=== PATIENT | female | born 1980 | race Caucasian/White ===

== ENCOUNTER 2017-04-14 15:24 | Emergency (ER) | payer BC ==
[~2017-04-14] VITALS: Ht 165.1 cm; Wt 99.7 kg
[~2017-04-14 15:24] MED LIST: FLXHP PO; GLYC2TAB16 PO; KLN1X PO; LEVOIUD INT UTER; MULT-603 PO; NALT50TA16 PO; PANT40TA2 PO; PROB1TAB16 PEG; RBN1 PO; SUMA25TA12 PO; TRAZ50TA35 PO; ZLF/100 PO
[2017-04-14 15:36] VITALS: TEMP 37; Ht 165.1 cm; Wt 99.7 kg
[2017-04-14] MEDS ORDERED: CARI250T PO (15:48)
[2017-04-14] MEDS ORDERED: DOXE50CA3 PO (15:48)
[2017-04-14] MEDS ORDERED: LEVOIUD INT UTER (15:49)
[2017-04-14] MEDS ORDERED: MoRPHine SULFATE 4 MG/ML 1 ML CARP\\VIAL IV STA ×2 (15:52→18:18)
[2017-04-14] MEDS ORDERED: SODIUM CHLORIDE 0.9% 1000ML 1,000 ML IV STA (15:52)
[2017-04-14 16:16] LABS: BASO % 0.2 %; BASO ABS # 0.02 K/uL (0-0.2); COMPLETE YES; EOS % 3.8 %; HEMATOCRIT 40.5 % (37-47); IG% 0.2 %; LYMPH % 25.2 %; LYMPH ABS # 2.13 K/uL (1.2-3.4); MEAN CELL VOLUME 87.7 fL (80-100); MEAN CORPUSCULAR HEMOGLOBIN 26.8 pg (25-34); MEAN CORPUSCULAR HGB CONC 30.6 g/dl (32-36); MEAN PLATELET VOLUME 10.5 fL (7.4-10.4); MONO % 3.3 %; NEUT % 67.3 %; PLATELET COUNT 270 K/uL (130-400); RED BLOOD COUNT 4.62 M/uL (4.2-5.4); WHITE BLOOD COUNT 8.45 K/uL (4.8-10.8)
[2017-04-14 16:23] LABS: URINE APPEARANCE CLEAR (CLEAR); URINE BILIRUBIN NEG (NEG); URINE COLOR YELLOW; URINE EPITHELIAL CELL AUTO >30 /lpf (0-5); URINE NITRITE NEG (NEG); URINE PH 5.5 (4.5-7.5); URINE SPECIFIC GRAVITY 1.012 (1.000-1.030); UROBILINOGEN NEG (NEG)
[2017-04-14 16:25] LABS: MANUAL MICROSCOPIC REQUIRED? NO; REVIEW REQ? NO
--- NOTE | 2017-04-14 16:33 | EMERGENCY ROOM VISIT NOTE ---
History First contact with patient: 15:41 Chief Complaint: ABDOMINAL PAIN Stated Complaint: R SIDE PELVIC,GROIN,STOMACH PAIN History of Present Illness The patient is a 36 year old female who presents to the Emergency Room with complaints of right lower quadrant abdominal pain for the past 3 weeks. Patient states the pain is constant, has been getting progressively worse especially over the past 2-3 days, relieved with some positioning and holding pressure, worsened with movement and walking, 7/10. She reports history of IBS and chronic constipation, however notes for the past few weeks she has had looser stools. She has tried [id number] Tylenol, NSAIDs, as well as prescribed Soma and gabapentin for the pain, with little relief, however she has not taken any medications for pain today. She denies chest pain, shortness of breath, dizziness or syncope, back pain, nausea, vomiting, diarrhea, constipation, fever/chills, dysuria. She does note that she was recently weaned off of her Prozac a week ago due to a sleep study, no other changes in medications. Review of Systems GENERAL: Denies fevers, chills, malaise, fatigue, unintentional weight changes. HEENT: Denies dizziness, visual problems, hearing loss, tinnitus. Denies difficulty swallowing or oral lesions. PULMONARY: Denies cough, shortness of breath, sputum production or hemoptysis. CARDIOVASCULAR: Denies chest pain, palpitations, dyspnea on exertion, orthopnea or peripheral edema. GASTROINTESTINAL: + Abdominal pain. Denies diarrhea, constipation, nausea, vomiting, or hematochezia. GENITOURINARY: Denies dysuria, frequency, urgency or nocturia. NEUROLOGIC: Denies history of epilepsy, CVA, TIA or chronic headaches. MUSCULOSKELETAL: Denies history of joint tenderness/swelling. SKIN: Denies rashes or lesions. PSYCHIATRIC: + History of depression. ENDOCRINE: Denies history of diabetes, thyroid disorders. Past Medical/Surgical History Medical Problems: (1) Anxiety (2) Asthma (3) Depression (4) Enteritis (5) Enteritis (6) History of pneumonia (7) HLD (hyperlipidemia) (8) Migraine Surgical Problems: (1) H/O esophagogastroduodenoscopy (2) H/O: (3) History of bilateral breast reduction surgery (4) History of delivery (5) History of cholecystectomy (6) History of tonsillectomy and adenoidectomy (7) Hx of breast reduction, elective (8) S/P surgery on nasal septum (9) thoracoscopy Family History Cancer Diabetes mellitus Heart disease Hypertension Lung disease Stroke Social History Smoking Status: Never Smoker Alcohol Use: none Drug Use: none Marital Status: in relationship Housing Status: lives with family Occupation Status: employed Current/Historical Medications Scheduled Carisoprodol (Soma), 2 TAB PO BID Doxepin (Sinequan), 2 CAP PO HS Glycopyrrolate (Glycopyrrolate), 2 TABS PO QAM Levonorgestrel (Iud) (Mirena), INT UTER UD Allergies Coded Allergies: Sulfa Antibiotics (Verified Allergy, Unknown, "SULFA DRUGS ALLERGY", ) Physical Exam Vital Signs Date Time Temp Pulse Resp B/P (MAP) Pulse Ox O2 Delivery O2 Flow Rate FiO2 04/14/17 20:13 62 18 117/75 98 Room Air 04/14/17 18:56 73 18 114/69 99 Room Air 04/14/17 17:30 68 16 116/77 100 04/14/17 16:32 74 04/14/17 15:36 37.0 89 18 134/78 97 Room Air Physical Exam CONSTITUTIONAL: No acute distress. Well appearing and well nourished. Alert and oriented X 4 with normal affect. HEENT: Normocephalic, atraumatic. Pupils equal, round and reactive to light, EOMI. TMs normal. Pharynx normal. Moist mucous membranes. NECK: Supple, full active range of motion without discomfort. RESPIRATORY: Clear to auscultation bilaterally with no wheezing, crackles, rhonchi or stridor. Equal expansion bilaterally. CARDIOVASCULAR: Regular rate and rhythm with no murmurs, rubs or gallops. Normal peripheral perfusion. No edema. GASTROINTESTINAL: Soft, nondistended. Obese abdomen. Normal bowel sounds present in all quadrants. Moderate tenderness in the right lower quadrant, positive rebound, negative Rovsing, negative psoas sign. No palpable hernia. MUSCULOSKELETAL: Full range of motion of all joints without discomfort. INTEGUMENTARY: No rash or other significant dermatologic conditions noted. NEUROLOGIC: Cranial nerves II-XII grossly intact. No focal neurologic deficits noted. Medical Decision & Procedures ER Provider Diagnostic Interpretation: ABDOMEN AND PELVIS CT WITH IV AND ORAL CONTRAST CT DOSE: 1068.04 mGy.cm HISTORY: Generalized abdominal pain. TECHNIQUE: Multiaxial CT images of the abdomen and pelvis were performed following the use of intravenous and oral contrast. COMPARISON STUDY: Abdomen and pelvis CT 03/24/2016. FINDINGS: The lung bases are clear. Mild hepatic steatosis. Normal appendix. The intrauterine device is in good position. Normal bladder. Trace pelvic free fluid. This is likely physiologic. The spleen, gallbladder, pancreas, kidneys, and adrenal glands are within normal limits. No bowel wall thickening or obstruction. The pelvic organs are unremarkable. No suspicious lytic or blastic osseous lesions. IMPRESSION: 1. No bowel wall thickening or obstruction. 2. Mild hepatic steatosis. 3. Trace pelvic free fluid, likely physiologic. Laboratory Results 04/14/17 16:10 Red Blood Count 4.62, Mean Corpuscular Volume 87.7, Mean Corpuscular Hemoglobin 26.8, Mean Corpuscular Hemoglobin Concent 30.6, Mean Platelet Volume 10.5, Neutrophils (%) (Auto) 67.3, Lymphocytes (%) (Auto) 25.2, Monocytes (%) (Auto) 3.3, Eosinophils (%) (Auto) 3.8, Basophils (%) (Auto) 0.2, Neutrophils # (Auto) 5.68, Lymphocytes # (Auto) 2.13, Monocytes # (Auto) 0.28, Eosinophils # (Auto) 0.32, Basophils # (Auto) 0.02 04/14/17 16:10 Test 04/14/17 16:00 04/14/17 16:10 Urine Color YELLOW Urine Appearance CLEAR (CLEAR) Urine pH 5.5 (4.5-7.5) Urine Specific [place] 1.012 (1.000-1.030) Urine Protein NEG (NEG) Urine Glucose (UA) NEG (NEG) Urine Ketones NEG (NEG) Urine Occult Blood NEG (NEG) Urine Nitrite NEG (NEG) Urine Bilirubin NEG (NEG) Urine Urobilinogen NEG (NEG) Urine Leukocyte Esterase TRACE (NEG) Urine WBC (Auto) 1-5 /hpf (0-5) Urine RBC (Auto) 0-4 /hpf (0-4) Urine Hyaline Casts (Auto) 1-5 /lpf (0-5) Urine Epithelial Cells (Auto) >30 /lpf (0-5) Urine Bacteria (Auto) 1+ (NEG) Urine Test NEG (NEG) White Blood Count 8.45 K/uL (4.8-10.8) Red Blood Count 4.62 M/uL (4.2-5.4) Hemoglobin 12.4 g/dL (12.0-16.0) Hematocrit 40.5 % (37-47) Mean Corpuscular Volume 87.7 fL (80-100) Mean Corpuscular Hemoglobin 26.8 pg (25-34) Mean Corpuscular Hemoglobin Concent 30.6 g/dl (32-36) Platelet Count 270 K/uL (130-400) Mean Platelet Volume 10.5 fL (7.4-10.4) Neutrophils (%) (Auto) 67.3 % Lymphocytes (%) (Auto) 25.2 % Monocytes (%) (Auto) 3.3 % Eosinophils (%) (Auto) 3.8 % Basophils (%) (Auto) 0.2 % Neutrophils # (Auto) 5.68 K/uL (1.4-6.5) Lymphocytes # (Auto) 2.13 K/uL (1.2-3.4) Monocytes # (Auto) 0.28 K/uL (0.11-0.59) Eosinophils # (Auto) 0.32 K/uL (0-0.5) Basophils # (Auto) 0.02 K/uL (0-0.2) RDW Standard Deviation 45.3 fL (36.4-46.3) RDW Coefficient of Variation 14.1 % (11.5-14.5) Immature Granulocyte % (Auto) 0.2 % Immature Granulocyte # (Auto) 0.02 K/uL (0.00-0.02) Erythrocyte Sedimentation Rate 20 mm/hr (0-21) Anion Gap 9.0 mmol/L (3-11) Est Creatinine Clear Calc Drug Dose 122.4 ml/min Estimated GFR () 119.7 Estimated GFR (Non- 103.3 BUN/Creatinine Ratio 16.0 (10-20) Calcium Level 8.3 mg/dl (8.5-10.1) Total Bilirubin 0.4 mg/dl (0.2-1) Direct Bilirubin < 0.1 mg/dl (0-0.2) Aspartate Amino Transf (AST/SGOT) 25 U/L (15-37) Alanine Aminotransferase (ALT/SGPT) 20 U/L (12-78) Alkaline Phosphatase 101 U/L (45-117) C-Reactive Protein 1.05 mg/dl (0-0.29) Total Protein 6.7 gm/dl (6.4-8.2) Albumin 4.0 gm/dl (3.4-5.0) Lipase 159 U/L (73-393) Medications Administered Medications (Trade) Dose Ordered Sig/Adrienne Route Start Time Stop Time Status Last Admin Dose Admin Sodium Chloride 1,000 ml @ 999 mls/hr Q1H1M STAT IV 04/14/17 15:52 04/14/17 16:52 DC 04/14/17 15:52 999 MLS/HR Morphine Sulfate (MoRPHine SULFATE INJ) 4 mg NOW STAT IV 04/14/17 15:52 04/14/17 15:58 DC 04/14/17 16:17 4 MG Morphine Sulfate (MoRPHine SULFATE INJ) 4 mg NOW STAT IV 04/14/17 18:18 04/14/17 18:20 DC 04/14/17 18:18 4 MG Ketorolac Tromethamine (Toradol Inj) 30 mg STK-MED ONCE .ROUTE 04/14/17 20:11 04/14/17 20:12 DC 04/14/17 20:18 15 MG Medical Decision CC: Patient presenting with complaint of right lower quadrant pain Interpretation of Labs: No leukocytosis, no anemia, no significant electrolyte abnormalities, normal renal function, normal renal function, no UTI. Differential Diagnosis: Includes, but not limited to appendicitis, intra- abdominal abscess, diverticulitis, bowel obstruction, mesenteric adenitis, IBS flare, IBD, musculoskeletal strain, UTI. Medication Reconciliation: I attest that I have personally reviewed the patient' s current medication list. Vital signs review: I reviewed the patient's vital signs and interpret them as follows: T: Afebrile; BP: Normotensive; HR: Within normal limits; RR: Within normal limits; Pulse Ox: Within normal limits on room air. Blood pressure screening: The patient was found to have normal blood pressure on screening and does not require follow-up for repeat blood pressure check. Summary: Patient was evaluated at bedside, history of physical exam performed. She is alert and oriented, in no acute distress. Appears well-hydrated. She does have pointed tenderness in the right lower quadrant with positive rebound. No guarding or peritoneal signs. Orders were placed at bedside for labs, UA, IV fluids and pain medications, CT abdomen/pelvis to evaluate for appendicitis, intra-abdominal infection, inflammatory bowel disease. Patient discussed with Dr. Reece, who agrees with my assessment and plan. Labs reviewed, unremarkable as described above. CT results reviewed, no acute abnormalities, specifically no appendicitis, bowel inflammation, or obstruction. Given the increased right lower quadrant pain with walking and active hip flexion/extension, a query musculoskeletal strain/sprain as cause of patient's pain. No hip joint pain with palpation or passive range of motion. Patient reassessed multiple times throughout ED stay, is adequately addressed. I discussed all results with the patient, particularly that we did not find a diagnosis for her pain today, but have ruled out concerning etiology. I instructed her to follow-up closely with her PCP, as well as provided her with discharge instructions and return precautions should her symptoms worsen. Patient verbalized understanding and was discharged home in stable condition. Impression Primary Impression: Right lower quadrant pain Departure Information Dispostion Home / Self-Care Condition GOOD Referrals Brenna Plummer D.O. (PCP) Patient Instructions ED Abdominal Pain Unkn Cause, My [facility] Additional Instructions You have been treated in the Emergency Department your Abdominal Pain. Laboratory results and imaging studies have ruled out any emergent causes for your abdominal pain which would warrant admission or surgery. For pain control, you can use the following [id number] medicines (if >12 yo): - Regular strength (325mg/tab) Tylenol (acetaminophen) 2 tabs every 4-6 hours as needed. Do not exceed 12 tablets in a 24 hour period. Avoid taking more than 4 grams (4000 mg) of Tylenol per day. This includes any other sources of acetaminophen you may take on a regular basis. - Aleve 220mg 1-2 tablets every 12 hours as needed for pain. Do note exceed 4 tablets in a 24 hour period. Apply moist heat to the area for 20 minutes at a time several times throughout the day to help with pain. Drink plenty of water and stay well hydrated. As with any trip to the Emergency Department, you should follow-up with your Primary Care Provider from today's visit. Return to the emergency department if your symptoms persist despite treatment plan outlined above or if the following symptoms occur: increased fevers, chills , worsening nausea/vomiting, blood in your stool or urine.
[2017-04-14 16:35] LABS: ALT/SGPT 20 U/L (12-78); AST/SGOT 25 U/L (15-37); BLOOD UREA NITROGEN 12 mg/dl (7-18); CALCIUM 8.3 mg/dl (8.5-10.1); CARBON DIOXIDE 28 mmol/L (21-32); CHLORIDE 106 mmol/L (98-107); CREATININE 0.75 mg/dl (0.60-1.20); GLUCOSE 87 mg/dl (70-99); POTASSIUM 3.7 mmol/L (3.5-5.1); SODIUM 143 mmol/L (136-145)
[2017-04-14 16:37] LABS: ALKALINE PHOSPHATASE 101 U/L (45-117)
[2017-04-14] MEDS ORDERED: OPTIRAY 320 IV PRN (18:45)
--- NOTE | 2017-04-14 18:52 | DIAGNOSTIC IMAGING REPORT ---
ABDOMEN AND PELVIS CT WITH IV AND ORAL CONTRAST CT DOSE: 1068.04 mGy.cm HISTORY: Generalized abdominal pain. TECHNIQUE: Multiaxial CT images of the abdomen and pelvis were performed following the use of intravenous and oral contrast. COMPARISON STUDY: Abdomen and pelvis CT 03/24/2016. FINDINGS: The lung bases are clear. Mild hepatic steatosis. Normal appendix. The intrauterine device is in good position. Normal bladder. Trace pelvic free fluid. This is likely physiologic. The spleen, gallbladder, pancreas, kidneys, and adrenal glands are within normal limits. No bowel wall thickening or obstruction. The pelvic organs are unremarkable. No suspicious lytic or blastic osseous lesions. IMPRESSION: 1. No bowel wall thickening or obstruction. 2. Mild hepatic steatosis. 3. Trace pelvic free fluid, likely physiologic. Electronically signed by: Rafi Mendoza M.D. 04/14/2017 6:51 PM Dictated Date/Time: 04/14/2017 6:42 PM
[2017-04-14] MEDS ORDERED: KETOROLAC TROMETHAMINE 15 MG/ML VIAL IM PRN (20:00)
[2017-04-14] MEDS ORDERED: KETOROLAC TROMETHAMINE 30 MG/ML VIAL ONE (20:11)
[2017-04-14 20:13] VITALS: BP 117/75; PULSE 62; O2SAT 98
== END 2017-04-14 20:20 | disposition home or self-care (01) ==
LOC: C.EDB 15:25 → C.EDC 20:20
DX: R10.31 Right lower quadrant pain (principal); F41.9 Anxiety disorder, unspecified; J45.909 Unspecified asthma, uncomplicated; F33.41 Major depressive disorder, recurrent, in partial remission; E78.5 Hyperlipidemia, unspecified; Z83.3 Family history of diabetes mellitus; Z82.49 Family history of ischemic heart disease and other diseases of the circulatory system; Z82.3 Family history of stroke